=== PATIENT | male | born 1985 | race Caucasian/White ===

== ENCOUNTER → 2020-06-21 16:03 | Outpatient (CLI) | payer BC, SELFPAY ==
--- NOTE | ~2020-06-21 | XR_ITS ---
EXAMINATION: XR cervical spine 4-5V EXAM DATE: 06/21/2020 17:54 INDICATION: Cervicalgia, chronic back pain. Fracture c2 2010, some pain in neck chronic since surgery Subluxation. TECHNIQUE: Cervical spine frontal, lateral, lateral swimmers, and open-mouth odontoid projections. There is no prior study for comparison. FINDINGS: There is a screw through the body of C2 extending to the odontoid process. No evidence of odontoid fracture, presumably this is bridging a fracture that completely healed. There is no evidenc e of acute cervical fracture. The odontoid process is intact. Pre-dens space is normal. Prevertebr al soft tissue is normal. There are no soft tissue abnormalities identified. Vertebral body and dis c heights are well-maintained. The vertebral bodies are aligned. Mild cervical arthropathy. IMPRESSION: 1. Intact C2 fixation screw. 2. Mild cervical arthropathy. Reviewed, dictated and finalized at location A.
== END ==
DX: M53.86 Other specified dorsopathies, lumbar region (principal); M79.10 Myalgia, unspecified site
CPT/HCPCS: 72050

== ENCOUNTER 2021-07-21 20:56 | Emergency (ER) | payer BC, SELFPAY ==
[2021-07-21 21:03] VITALS: BP 148/99; PULSE 73; RESP 16; TEMP 36.7; O2SAT 100
--- NOTE | 2021-07-21 21:24 | ED.SKABFB ---
HPI - Skin/Abscess/Foreign Bdy General Chief complaint: Skin/Abscess/Foreign Body Stated complaint: chicken stuck in back of throat Time Seen by Provider: 07/21/21 21:11 History of Present Illness HPI narrative: 36-year-old male presents the emergency room for evaluation of a dysphagia and choking after ingesting a piece of chicken. Patient states he attempted to drink Sprite and water prior to arrival and has been spitting up both. Patient denies any shortness of breath difficulty breathing. Related Data Home Medications Medication Instructions Recorded Confirmed No Home Medications 07/21/21 Allergies Allergy/AdvReac Type Severity Reaction Status Date / Time No Known Allergies Allergy Verified 07/21/21 21:06 Review of Systems Review of Systems: CONSTITUTIONAL: Denies fever, chills, or sweats. EYES: Denies visual changes, redness, or discharge. ENT: Denies rhinorrhea, congestion, sore throat, or otalgia. CARDIOVASCULAR: Denies chest pain, palpitations, or edema. RESPIRATORY: Denies cough or dyspnea. GASTROINTESTINAL: Reports dysphagia GENITOURINARY: Denies dysuria or hematuria. SKIN: Denies rash or itching. MUSCULOSKELETAL: Denies back pain, joint pain, or myalgia. NEUROLOGIC: Denies headache, numbness, dizziness, or weakness. PSYCHIATRIC: Denies anxiety or depression. Exam Narrative: GENERAL: Well-appearing, well-nourished, and in no acute distress. HEAD: Normocephalic, atraumatic. EYES: PERRLA and EOMI. ENT: Nares clear, no rhinorrhea or epistaxis. Mucous membranes moist. Oropharynx without tonsillar hypertrophy exudate or other lesions. Bilateral TMs pearly rowland nonbulging CHEST: Clear to auscultation. No respiratory distress. No wheezes rales or rhonchi HEART: Regular rate and rhythm. No murmur heard. Normal peripheral pulses. ABDOMEN: Soft, nontender, nondistended, normal active bowel sounds. SKIN: Warm, dry, no rash. NEURO: No focal deficits. Alert and oriented x3. PSYCH: Normal mood and affect. Course Course Emergency Course: 2129: Patient given a can of cola, and esophageal obstruction spontaneously resolved. Vital Signs Vital signs: Vital Signs Temperature 36.7 C 07/21/21 21:03 Pulse Rate 73 07/21/21 21:03 Respiratory Rate 16 07/21/21 21:03 Blood Pressure 148/99 H 07/21/21 21:03 Pulse Oximetry 100 07/21/21 21:03 Oxygen Delivery Room Air 07/21/21 21:03 Temperature 36.7 C 07/21/21 21:03 Pulse Rate 73 07/21/21 21:03 Respiratory Rate 16 07/21/21 21:03 Blood Pressure 148/99 H 07/21/21 21:03 Pulse Oximetry 100 07/21/21 21:03 Oxygen Delivery Room Air 07/21/21 21:03 Discharge Plan Discharge Clinical Impression: Esophageal obstruction due to food impaction Patient Disposition: Home, Self-Care Condition: Stable Instructions: Antibiotic Form, Esophageal Foreign Body (ED) Prescriptions: No Action No Home Medications Follow-up/Referrals: German Abad MD [Physician] - UNKNOWN,DOCTOR [Non-Staff] - Time of Disposition: :29
== END 2021-07-21 21:36 | disposition home or self-care (01) ==
PROVIDERS: Emergency Provider Nurse Practitioner Family
DX: T18.128A Food in esophagus causing other injury, initial encounter (principal)
CPT/HCPCS: 99281

== ENCOUNTER → 2021-09-03 09:09 | Outpatient (CLI) | payer BC, SELFPAY ==
--- NOTE | ~2021-09-03 | MR_ITS ---
EXAMINATION: MR knee RT wo con DATE: 09/03/2021 09:41 INDICATION: Right knee pain. TECHNIQUE: Magnetic resonance imaging (MRI) of the right knee knee was performed without intravenous contrast. Sequences included axial PD-weighted FS FSE, coronal PD-weighted FSE and PD-weighted FS FSE , sagittal PD-weighted FSE, and sagittal T2-weighted FS FSE. COMPARISON: None. FINDINGS: Medial compartment: Apical tears of the medial meniscal body. Oblique undersurface tear of the medial meniscal body. Mild diffuse cartilage thinning and osteophytosis. Lateral compartment: Meniscus intact. Mild osteophytosis. Patellofemoral compartment: Mild focal partial thickness cartilage signal abnormality. Mild osteophytosis. Ligaments and tendons: Intact ACL graft. Thickened MCL. PCL and LCL are intact. Fluid surrounds the distal semimembranosus t endon. Remaining flexor and extensor tendons are intact. Fluid: Small volume joint fluid. Small Alvares's cyst. Osseous/other: No suspicious focal or diffuse marrow signal. IMPRESSION: 1. Apical and oblique undersurface tears of the body of the medial meniscus. 2. Chronic MCL tear. 3. Semimembranosus tenosynovitis. 4. Mild tricompartmental osteoarthritis. Reviewed, dictated and finalized at location K.
== END ==
PROVIDERS: PCP Orthopaedic Surgery Sports Medicine; Visit Provider Orthopaedic Surgery Sports Medicine
DX: M17.11 Unilateral primary osteoarthritis, right knee (principal); S83.411A Sprain of medial collateral ligament of right knee, initial encounter; X58.XXXA Exposure to other specified factors, initial encounter
CPT/HCPCS: 73721

== ENCOUNTER 2022-11-30 00:16 | Emergency (ER) | payer BC, SELFPAY ==
--- NOTE | ~2022-11-30 | XR_ITS ---
EXAMINATION: XR chest 2V 11/30/2022 01:37 INDICATION: Cough and shortness of breath. Upper Respiratory infection. PROCEDURE: 2 view chest COMPARISON: No prior studies for comparison. FINDINGS: The lungs are clear. The cardiomediastinal silhouette is within normal limits. There are no pleural effusions. There is no pneumothorax suspected. IMPRESSION: 1: NO ACUTE CARDIOPULMONARY DISEASE. Reviewed, dictated and finalized at location A.
[2022-11-30 00:18] VITALS: BP 121/88; PULSE 107; RESP 20; TEMP 36; O2SAT 93
--- NOTE | 2022-11-30 01:20 | ECG_ITS ---
Measurements Intervals [place] Rate: 111 P: 32 MD: 137 QRS: -3 QRSD: 90 T: -3 QT: 316 QTc: 430 Interpretive Statements SINUS TACHYCARDIA OTHERWISE NORMAL ECG NO PREVIOUS ECG AVAILABLE FOR COMPARISON Electronically Signed On 11-30-2022 8:28:39 CDT by Wang Valdez M.D.
[2022-11-30 01:46] VITALS: O2SAT 93
--- NOTE | 2022-11-30 01:58 | ED.URI ---
HPI - URI/Sore Throat General Chief Complaint: Upper Respiratory Infection Stated Complaint: SOB, coughing Time Seen by Provider: 11/30/22 01:21 Source: patient Mode of arrival: ambulatory Limitations: no limitations History of Present Illness HPI Narrative: Patient is a 37 y/o male who presents to the ED with report of cough or shortness of breath. Patient reports he has had a persistent cough, occasionally productive, for the last 2 to 3 weeks. He has had occasional shortness of breath, wheezing, and dyspnea with exertion. He experienced an episode of more severe shortness of breath upon waking up this evening which prompted his presentation. He denies any chest pain. Denies significant pleuritic pain. No lower extremity pain or swelling. Denies congestion, rhinorrhea, fevers. Denies nausea, vomiting. No known sick contacts. Denies history of asthma. Related Data Allergies Allergy/AdvReac Type Severity Reaction Status Date / Time No Known Allergies Allergy Verified 11/30/22 00:21 Review of Systems Review of Systems: CONSTITUTIONAL: Denies fever, chills, or sweats. ENT: Denies rhinorrhea, congestion, sore throat. CARDIOVASCULAR: Denies chest pain. RESPIRATORY: See HPI. GASTROINTESTINAL: Denies abdominal pain, nausea, vomiting. All systems reviewed & are unremarkable except as noted in HPI and below PMFSH Social History Social History Smoking status: Never smoker Alcohol intake: current Substance use: never Exam Narrative: GENERAL: Well appearing, obese with BMI of 33.0, non-toxic, in no acute distress. HEAD: Normocephalic, atraumatic. NECK: Supple. No adenopathy, no masses. RESPIRATORY: Airway patent, respirations nonlabored. Decreased and tight lung sounds throughout. Expiratory wheezing present throughout all lung jason, worse on right side. CARDIOVASCULAR: Borderline tachycardic with regular rhythm without murmurs, rubs, or gallops. Radial pulses 2+ and equal bilaterally. ABDOMINAL: Soft, nontender, nondistended, no hepatosplenomegaly. Normoactive BS. MUSCULOSKELETAL: Moves all extremities. Strength/ROM intact without gross deformities. No edema. No calf tenderness. SKIN: Warm, dry, normal color. No rashes. NEURO: A&O X3. Speech clear. Cranial nerves II-XII grossly intact. Steady gait. No ataxic movements. PSYCHIATRIC: Appropriate mood and affect. Normal interaction. Course Vital Signs Vital signs: Vital Signs Temperature 96.8 F L 11/30/22 00:18 Pulse Rate 107 H 11/30/22 00:18 Respiratory Rate 20 11/30/22 00:18 Blood Pressure 121/88 11/30/22 00:18 Pulse Oximetry 93 11/30/22 00:18 Oxygen Delivery Room Air 11/30/22 00:18 Temperature 96.8 F L 11/30/22 00:18 Pulse Rate 110 H 11/30/22 02:18 Respiratory Rate 18 11/30/22 02:18 Blood Pressure 121/88 11/30/22 00:18 Pulse Oximetry 93 11/30/22 00:18 Oxygen Delivery Room Air 11/30/22 02:14 MDM - URI/Sore Throat MDM Narrative Medical decision making narrative: Patient presented to ED with several week history of cough, wheezing, dyspnea. Patient tachycardic upon arrival. Vitals otherwise stable. Oxygen 93 to 99% on room air. Chest x-ray interpreted by myself with possible consolidation on right middle to lower lung zones. CBC without leukocytosis. EKG without ischemic changes. Troponin undetectable. D-dimer WNL. Influenza, RSV, COVID negative. Patient feeling significantly better after nebulizer Tx and steroids. Lung sounds much improved on auscultation. Will discharge with inhaler, steroid course, and Doxy for possible small consolidation on cxr and prolonged nature of sx's. Advised close follow-up with primary care doctor for further evaluation. Given return precautions. Patient agrees with plan and feels comfortable with discharge home. Discharged in stable condition. Medical Records Attestation: I reviewed the patient's medica
[2022-11-30] MEDS: LEVALBUTEROL NEB 1.25 MG/3 ML 2.5 MG INHALATION (02:07)
[2022-11-30] MEDS: IPRATROPIUM BR 0.02% INH SOLN 0.5 MG/2.5 ML VIAL 1.5 MG INHALATION (02:09)
[2022-11-30 02:12] LABS: Basophils Absolute Auto 0.1 K/mm3 (0.0-0.1); Basophils Percent Auto 0.9 % (0.2-1.2); Eosinophils Absolute Auto 0.5 K/mm3 (0-0.3); Eosinophils Percent Auto 5.7 % (0-4.4); Hematocrit 45.6 % (42.0-52.0); Hemoglobin 15.3 g/dL (14.0-18.0); Immature Granulocyte Absolute 0.03 K/mm3 (0.00-0.031); Immature Granulocyte Percent A 0.4 % (0-0.5); Lymphocytes Absolute Auto 1.88 K/mm3 (0.9-3.2); Lymphocytes Percent Auto 23.4 % (18.3-44.2); Mean Corpuscular HGB Conc 33.6 g/dl (32-36); Mean Corpuscular Hemoglobin 30.7 pg (26-34); Mean Corpuscular Volume 91.6 fl (80-100); Mean Platelet Volume 9.9 fl (7.4-10.4); Monocytes Absolute Auto 0.9 K/mm3 (0.1-0.6); Monocytes Percent Auto 10.7 % (2.6-8.5); Neutrophils Absolute Auto 4.7 K/mm3 (1.3-6.7); Neutrophils Percent Auto 58.9 % (45.5-73.1); Platelet Count Result 261 k/mm3 (150-375); Red Blood Count 4.98 M/mm3 (4.6-6.20); Red Cell Distribution Width 12.9 % (11.5-14.5)
[2022-11-30] MEDS: methylPREDNISolone SOD SUCC 125 MG VIAL IV PUSH (02:15)
[2022-11-30] MEDS: BENZONATATE 100 MG CAPSULE 200 MG PO (02:16)
[2022-11-30 02:18] VITALS: PULSE 110; RESP 18
[2022-11-30 02:32] LABS: Alanine Aminotransferase 26 U/L (6-50); Albumin Level 4.5 g/dL (3.5-5.1); Alkaline Phosphatase 54 U/L (38-126); Anion Gap 9 mmol/L (8-16); Aspartate Amino Transferase 23 U/L (17-59); Bilirubin,Total 0.5 mg/dL (0.2-1.3); Blood Urea Nitrogen 16 mg/dL (9-20); Calcium 9.1 mg/dL (8.4-10.2); Carbon Dioxide 24 mmol/L (22-30); Chloride 104 mmol/L (98-107); Estimated CRCL calculation 133 ml/min; Estimated Glomerular Filt Rate > 60; Glucose 86 mg/dL (65-110); Potassium 4.4 mmol/L (3.4-5.0); Sodium 137 mmol/L (137-145)
[2022-11-30 02:44] LABS: Troponin I < 0.012 ng/mL (0.000-0.034)
[2022-11-30 02:50] LABS: Influenza A QL RT-PCR Negative (Negative); Influenza B QL RT-PCR Negative (Negative); RSV RNA, RT-PCR Negative (Negative); SARS-CoV-2 RNA PCR Negative (Negative)
[2022-11-30 02:51] LABS: Prothrombin Time 13.2 Seconds (11.1-14.7)
[2022-11-30 02:52] VITALS: PULSE 123; RESP 22; O2SAT 93
[2022-11-30 03:00] VITALS: BP 140/83; PULSE 104; RESP 18; O2SAT 96
[2022-11-30 03:15] VITALS: BP 145/76; PULSE 118; RESP 28; O2SAT 95
== END 2022-11-30 03:48 | disposition home or self-care (01) ==
PROVIDERS: Emergency Provider Physician Assistant; PCP Family Medicine Sports Medicine
DX: J40 Bronchitis, not specified as acute or chronic (principal); J06.9 Acute upper respiratory infection, unspecified; R06.2 Wheezing
CPT/HCPCS: 36415; 71046; 80053; 84484; 85025; 85380; 85610; 85730; 87637; 93005; 94640; 96374; 99284; A9270; J2930

== ENCOUNTER 2023-01-05 10:06 | Outpatient (CLI) | payer BC, SELFPAY ==
[2023-01-05 11:08] LABS: CRP < 0.5 mg/dL (<1.0)
[2023-01-05 11:58] LABS: Erythrocyte Sedimentation Rate 2 mm/hr (0-20)
[2023-01-08 10:06] LABS: Immunoglobulin A 299 mg/dL (47-310); TTG IGA AB <1.0 U/mL (<15.0)
== END 2023-01-05 10:07 | disposition home or self-care (01) ==
LOC: ANHLAB 10:07
PROVIDERS: PCP Family Medicine Sports Medicine; Visit Provider Nurse Practitioner
DX: K52.9 Noninfective gastroenteritis and colitis, unspecified (principal); R10.9 Unspecified abdominal pain
CPT/HCPCS: 36415; 82784; 84443; 85652; 86140; 86364

== ENCOUNTER 2023-01-26 01:10 | Day surgery (SDC) | payer BC, SELFPAY ==
[2023-01-09 13:05] VITALS: BMI 33.0
[2023-01-26 11:52] VITALS: BP 143/96; PULSE 75; RESP 18; TEMP 36.1; O2SAT 100; BMI 33.1
[2023-01-26] MEDS: LACTATED RINGERS 1,000 ML 150 ML IV CONT (12:16)
--- NOTE | 2023-01-26 12:23 | P.PNAN_ITS ---
Anes - Initial Pre Proc Eval Procedure: Operation Date: 01/26/23 13:00 Proposed Procedures p Esophagogastroduodenoscopy & Colonoscopy - Lobito Grullon MD Date/Time: 01/26/23 12:23 Surgeon: Lobito Grullon MD Pre Op Diagnosis: GERD,Dysphagia,Abdominal Pain Patient Data Age: 38 Gender: M Height: 1.85 m Weight: 114 kg Last Vital Signs Temp 36.1 C L 01/26/23 11:52 Pulse 75 01/26/23 11:52 Resp 18 01/26/23 11:52 BP 143/96 H 01/26/23 11:52 Pulse Ox 100 01/26/23 11:52 O2 Del Method Room Air 01/26/23 11:52 Allergies Allergy/AdvReac Type Severity Reaction Status Date / Time No Known Allergies Allergy Verified 01/26/23 12:03 Home Medications Medication Instructions Recorded Confirmed Type budesonide-formoterol HFA 80 1 puff inhalation TID PRN 01/05/23 01/26/23 History mcg-4.5 mcg/actuation aerosol BRONCHITIS inhaler (Symbicort) dicyclomine 20 mg tablet 20 mg PO .every 6 hours PRN PRN 01/05/23 01/26/23 Rx abdominal pain #120 tabs omeprazole 40 mg capsule,delayed 40 mg PO DAILY #30 caps 01/05/23 01/26/23 Rx release Patient hx anesthesia problems: none Family hx anesthesia problems: none Results Review: All pre-operative results and documents have been reviewed as part of the pre- operative evaluation. [facility] Past Medical History Medical History Abdominal pain Acid reflux Chronic diarrhea Chronic right flank pain Obesity Social History Social History Smoking status: Never smoker Alcohol intake: current Drinks per week: 4 Alcohol use details: DRINKS Substance use: never Substance use type: does not use Living arrangements: with family Spiritual care concerns: No Anes - Eval Final PreProcedure Day of Procedure 01/26/23 12:23 Patient weight: obese Heart: regular rate and rhythm Lungs: clear to auscultation Airway: Mallampati scale class II Neurological: alert and oriented Last oral intake: >/= 8 hours ASA classification: II Emergent: no Anesthetic plan: proceed Anesthesia type and monitoring: general GIVS and standard monitoring Results Review: All pre-operative results and documents have been reviewed as part of the pre- operative evaluation. Informed Consent: The patient's anesthetic plan and its attendant risks and benefits were discussed with the patient/family/POA. Questions were solicited and answers provided to the satisfaction of the patient/family/POA.
--- NOTE | 2023-01-26 12:37 | WPDHPUPDATE1 ---
History and Physical Update Update Date/Time: 01/26/23 12:37 History and Physical has been reviewed, including an updated exam of the patient. There are NO changes in the patient's condition. Risks, benefits, and alternatives have been discussed and questions answered. Patient agrees to proceed with procedure.
--- NOTE | 2023-01-26 12:57 | SUR.OPER ---
EGD: started at 1240 and ended at 1252. Colonoscopy began at 1257.
[2023-01-26 13:10] VITALS: BP 114/77; PULSE 88; RESP 25; O2SAT 99
[2023-01-26 13:20] VITALS: BP 115/91; PULSE 80; RESP 21; O2SAT 97
[2023-01-26 13:30] VITALS: BP 127/86; PULSE 73; RESP 22; O2SAT 99
== END 2023-01-26 13:34 | disposition home or self-care (01) ==
PROVIDERS: PCP Family Medicine Sports Medicine; Visit Provider Internal Medicine Gastroenterology
PROC: 0DJ08ZZ Inspection of Upper Intestinal Tract, Via Natural or Artificial Opening Endoscopic (ICD-10-PCS; CPT 43235; principal; 2023-01-26 13:00)
DX: R19.7 Diarrhea, unspecified (principal); K64.8 Other hemorrhoids; K20.0 Eosinophilic esophagitis; K21.9 Gastro-esophageal reflux disease without esophagitis; E66.9 Obesity, unspecified; Z68.33 Body mass index [BMI] 33.0-33.9, adult; Z79.51 Long term (current) use of inhaled steroids
CPT/HCPCS: 45380; 43239; 88305; J2704; J7120